=== PATIENT | male | born 1970 | race Hispanic/Latino ===

== ENCOUNTER 2018-06-07 22:08 | Emergency (ER) | payer SELFPAY ==
[2018-06-07 22:14] VITALS: BP 137/83; PULSE 104; RESP 16; TEMP 98.2; O2SAT 97
--- NOTE | 2018-06-07 23:14 | ED PDOC ---
HPI: Psych/Substance Abuse Time Seen by Provider: 06/07/18 22:30 Chief Complaint (Nursing): Psychiatric Evaluation Chief Complaint (Provider): [facility] eval History Per: Patient (47 y/o male here for evaluation of suicidal gesture noted by partner. As per patient and his partner, they were in an argument about finances when he put a leg on rail to get attention of partner. At this time partner called 911. Patient has no h/o depression or suicidal attempt. Partner states he does not feel patient was trying to hurt self but just trying to get his attention. No etoh/drug ingestion or history of either.) Past Medical History Reviewed: Historical Data, Nursing Documentation, Vital Signs Vital Signs: Last Vital Signs Temp 98.2 F 06/07/18 22:10 Pulse 104 H 06/07/18 22:10 Resp 16 06/07/18 22:10 BP 137/83 06/07/18 22:10 Pulse Ox 97 06/07/18 22:10 - Family History Family History: States: No Known Family Hx - Allergies Allergies/Adverse Reactions: Allergies Allergy/AdvReac Type Severity Reaction Status Date / Time No Known Allergies Allergy Verified 06/07/18 22:16 Review of Systems ROS Statement: Except As Marked, All Systems Reviewed And Found Negative Physical Exam - Reviewed Nursing Documentation Reviewed: Yes Vital Signs Reviewed: Yes - Physical Exam Appears: Positive for: Well, Non-toxic, No Acute Distress Head Exam: Positive for: ATRAUMATIC, NORMAL INSPECTION, NORMOCEPHALIC Skin: Positive for: Normal Color, Warm, DRY Eye Exam: Positive for: EOMI, Normal appearance, PERRL ENT: Positive for: Normal ENT Inspection Neck: Positive for: Normal, Painless ROM Cardiovascular/Chest: Positive for: Regular Rate, Rhythm Respiratory: Positive for: CNT, Normal Breath Sounds Gastrointestinal/Abdominal: Positive for: Normal Exam, Soft Back: Positive for: Normal Inspection Extremity: Positive for: Normal ROM Neurologic/Psych: Positive for: Alert, Oriented - ECG O2 Sat by Pulse Oximetry: 97 - Progress ED Course And Treament: SEEN BY CRISIS CLEARED BY DR. ENCARNACION DIAGNOSIS ADJUSTMENT DISORDER Disposition - Clinical Impression Clinical Impression: Adjustment disorder - Patient ED Disposition Is Patient to be Admitted: No - Disposition Referrals: [facility] [Outside] Disposition: Routine/Home Disposition Time: 23:38 Condition: FAIR Instructions: Adjustment Disorder
== END 2018-06-07 23:59 | disposition home or self-care (01) ==
LOC: H.ER 22:08
DX: F43.20 Adjustment disorder, unspecified (principal)